=== PATIENT | male | born 1955 | race African-American/Black ===

== ENCOUNTER 2017-03-01 09:40 | Emergency (ER) | payer SELFPAY ==
[2010-12-21 04:33] VITALS: BMI 22.1
== END 2017-03-01 10:55 | disposition home or self-care (01) ==
LOC: D.ER 09:40
DX: L03.211 Cellulitis of face (principal); L23.4 Allergic contact dermatitis due to dyes; F17.200 Nicotine dependence, unspecified, uncomplicated; I10 Essential (primary) hypertension

== ENCOUNTER 2018-01-22 10:23 | Emergency (ER) | payer SELFPAY ==
[2018-01-22 10:32] VITALS: BP 177/109; Ht 167.6 cm
== END 2018-01-22 12:30 | disposition left against medical advice (07) ==
LOC: D.ER 10:23
DX: S69.92XA Unspecified injury of left wrist, hand and finger(s), initial encounter (principal); X58.XXXA Exposure to other specified factors, initial encounter; Y93.9 Activity, unspecified; Y92.9 Unspecified place or not applicable

== ENCOUNTER 2019-02-23 13:19 | Emergency (ER) | payer MEDICAID ==
[~2019-02-23] VITALS: Ht 167.6 cm; Wt 63.6 kg
[2019-02-23 13:30] VITALS: Ht 167.6 cm; Wt 63.6 kg
[2019-02-23] MEDS ORDERED: NAPROSYN500 MG PO (15:10)
[2019-02-23] MEDS ORDERED: ROBAXIN500 MG PO (15:10)
[2019-02-23 15:56] VITALS: BP 180/107
== END 2019-02-23 15:57 | disposition home or self-care (01) ==
LOC: D.ER 13:19
DX: M19.012 Primary osteoarthritis, left shoulder (principal); M19.011 Primary osteoarthritis, right shoulder

== ENCOUNTER 2019-03-25 11:25 | Emergency (ER) | payer MEDICAID ==
[~2019-03-25] VITALS: Ht 167.6 cm; Wt 63.6 kg
[~2019-03-25 11:25] MED LIST: NAPROSYN500 MG PO; ROBAXIN500 MG PO
[2019-03-25 12:07] VITALS: BP 169/108; Ht 167.6 cm; Wt 63.6 kg
[2019-03-25] MEDS ORDERED: CYCLOBENZAPRINE10 MG PO (13:51)
[2019-03-25] MEDS ORDERED: ULTRAM50 MG PO (13:51)
== END 2019-03-25 14:02 | disposition home or self-care (01) ==
LOC: D.ER 11:25
DX: M54.2 Cervicalgia (principal)

== ENCOUNTER 2019-10-28 16:25 | Emergency (ER) | payer SELFPAY ==
[~2019-10-28] VITALS: Ht 167.6 cm; Wt 63.6 kg
[~2019-10-28 16:25] MED LIST changes: +CYCLOBENZAPRINE10 MG PO; +ULTRAM50 MG PO
[2019-10-28 16:30] VITALS: Ht 167.6 cm; Wt 63.6 kg
[2019-10-28 17:19] VITALS: BP 180/98
== END 2019-10-28 17:19 | disposition home or self-care (01) ==
LOC: D.ER 16:25
DX: F10.129 Alcohol abuse with intoxication, unspecified (principal); Y90.9 Presence of alcohol in blood, level not specified; R41.82 Altered mental status, unspecified

== ENCOUNTER 2020-04-19 06:15 | Emergency (ER) | payer SELFPAY ==
[~2020-04-19] VITALS: Ht 167.6 cm; Wt 63.6 kg
[2020-04-19 06:16] VITALS: Ht 167.6 cm; Wt 63.6 kg
[2020-04-19 06:41] LABS: BASOPHILS 0.6 % (0-2); EOSINOPHILS 4.4 % (0-7); HEMATOCRIT 39.3 % (42.0-54.0); HEMOGLOBIN 13.5 g/dL (13.5-17.5); IMMATURE GRANULOCYTES 0.2 % (0-5); MCH 32.9 pg (26.0-34.0); MCHC 34.4 g/dL (31.0-37.0); MCV 95.9 fL (80.0-100.0); MEAN PLATELET VOLUME 8.8 fL (7.4-10.4); MONOCYTES 14.4 % (2-11); NEUTROPHILS 43.4 % (40-80); RDW 12.5 % (11.5-14.5); WBC 4.7 10x3/uL (4.8-10.8)
[2020-04-19 06:53] LABS: PLATELET COUNT 216 10x3/uL (130-400)
[2020-04-19 07:01] LABS: APTT 32.2 SECONDS (22.8-39.4); INR 0.99 (0.85-1.17); PROTIME 13.1 SECONDS (11.6-15.0)
[2020-04-19 07:03] LABS: CALC OSMOLALITY 272 mosm/kg (275-300); CALCIUM 9.2 mg/dL (8.5-10.1); CARBON DIOXIDE 27.9 mmol/L (21.0-32.0); CHLORIDE - SERUM 99 mmol/L (98-107); GLUCOSE 92 mg/dL (74-106); POTASSIUM - SERUM 3.5 mmol/L (3.5-5.1); SODIUM 136 mmol/L (136-145); UREA NITROGEN 14 mg/dL (7-18); eGFR NON AFRICAN AMERICAN 80 mL/min (90-120)
[2020-04-19] MEDS ORDERED: NORVASC5 MG PO (07:12)
[2020-04-19 07:17] LABS: ALBUMIN 3.7 g/dL (3.4-5.0); ALKALINE PHOSPHATASE 69 U/L (30-120); ALT (SGPT) 67 U/L (10-68); BILIRUBIN - TOTAL 0.68 mg/dL (0.2-1.3); LIPASE 84 U/L (73-393); MAGNESIUM - SERUM 1.9 mg/dL (1.8-2.4); PRO BNP 896 pg/mL (0-125); PROTEIN - SERUM 8.6 g/dL (6.4-8.2); TROPONIN-I < 0.017 ng/mL (0.000-0.060)
[2020-04-19 07:18] LABS: C-REACTIVE PROTEIN < 0.2 mg/dL (0.0-0.9)
[2020-04-19 07:32] VITALS: BP 175/97
== END 2020-04-19 07:37 | disposition home or self-care (01) ==
LOC: D.ER 06:15
PROVIDERS: Family Medicine
DX: K92.2 Gastrointestinal hemorrhage, unspecified (principal); I10 Essential (primary) hypertension

== ENCOUNTER 2020-05-13 21:35 | Emergency (ER) | payer SELFPAY ==
[~2020-05-13] VITALS: Ht 167.6 cm; Wt 63.6 kg
[~2020-05-13 21:35] MED LIST changes: +NORVASC5 MG PO
[2020-05-13 21:42] VITALS: Ht 167.6 cm; Wt 63.6 kg
[2020-05-13 22:04] LABS: BASOPHILS 0.5 % (0-2); EOSINOPHILS 3.4 % (0-7); HEMATOCRIT 35.6 % (42.0-54.0); HEMOGLOBIN 11.7 g/dL (13.5-17.5); LYMPHOCYTES 45.1 % (15-50); MCH 32.1 pg (26.0-34.0); MCHC 32.9 g/dL (31.0-37.0); MCV 97.8 fL (80.0-100.0); MEAN PLATELET VOLUME 8.9 fL (7.4-10.4); MONOCYTES 12.7 % (2-11); NEUTROPHILS 38.3 % (40-80); PLATELET COUNT 207 10x3/uL (130-400); RBC 3.64 10x6/uL (4.20-6.10); RDW 12.1 % (11.5-14.5); WBC 4.2 10x3/uL (4.8-10.8)
[2020-05-13 22:09] LABS: INR 1.02 (0.85-1.17); PROTIME 13.3 SECONDS (11.6-15.0)
[2020-05-13 22:10] LABS: APTT 31.4 SECONDS (22.8-39.4)
[2020-05-13 22:11] LABS: D-DIMER-QUANTITATIVE < 0.27 ug/mLFEU (0.20-0.54)
[2020-05-13 22:12] LABS: CALC OSMOLALITY 276 mosm/kg (275-300); CALCIUM 8.8 mg/dL (8.5-10.1); CARBON DIOXIDE 31.8 mmol/L (21.0-32.0); CHLORIDE - SERUM 103 mmol/L (98-107); GLUCOSE 102 mg/dL (74-106); POTASSIUM - SERUM 3.6 mmol/L (3.5-5.1); SODIUM 138 mmol/L (136-145); UREA NITROGEN 16 mg/dL (7-18); eGFR NON AFRICAN AMERICAN 80 mL/min (90-120)
[2020-05-13 22:28] LABS: BILIRUBIN NEGATIVE (NEGATIVE); KETONE NEGATIVE (NEGATIVE); NITRITE NEGATIVE (NEGATIVE); UROBILINOGEN NORMAL mg/dL (< 2)
[2020-05-13 22:30] LABS: ALBUMIN 3.3 g/dL (3.4-5.0); ALKALINE PHOSPHATASE 96 U/L (30-120); ALT (SGPT) 49 U/L (10-68); BILIRUBIN - TOTAL 0.19 mg/dL (0.2-1.3); CKMB 0.9 U/L (0.0-3.6); CREATINE KINASE 212 UL (21-232); MAGNESIUM - SERUM 1.9 mg/dL (1.8-2.4); PRO BNP 184 pg/mL (0-125); PROTEIN - SERUM 7.9 g/dL (6.4-8.2)
[2020-05-13 22:32] LABS: TROPONIN-I < 0.017 ng/mL (0.000-0.060)
[2020-05-13 22:35] LABS: UDS - AMPHET NEGATIVE QUAL (NEGATIVE); UDS - BARB NEGATIVE QUAL (NEGATIVE); UDS - BENZO NEGATIVE QUAL (NEGATIVE); UDS - COCAINE NEGATIVE QUAL (NEGATIVE); UDS - OPIATE NEGATIVE QUAL (NEGATIVE); UDS - PCP NEGATIVE QUAL (NEGATIVE); UDS - THC NEGATIVE QUAL (NEGATIVE)
[2020-05-13] MEDS ORDERED: PROTONIX40 MG PO (23:25)
[2020-05-13 23:46] VITALS: BP 171/94
== END 2020-05-13 23:53 | disposition home or self-care (01) ==
LOC: D.ER 21:35
PROVIDERS: Family Medicine
DX: R07.9 Chest pain, unspecified (principal); K21.9 Gastro-esophageal reflux disease without esophagitis; I10 Essential (primary) hypertension; Z72.0 Tobacco use